=== PATIENT | male | born 1975 | race African-American/Black ===

== ENCOUNTER 2016-06-28 09:48 | Emergency (ER) | payer SELFPAY ==
[2016-06-28] MEDS ORDERED: LORazepam 2MG/ML-1ML VIAL ONE (11:14)
[2016-06-28] MEDS ORDERED: SODIUM CHLORIDE 0.9% 1,000 ML IV ONE (11:33)
[2016-06-28] MEDS ORDERED: LORazepam 2MG/ML-1ML VIAL IV ONE (11:45)
[2016-06-28 11:48] LABS: Basophils # (auto) 0 uL; Basophils % (auto) 0.6 % (0.0-2.0); Eosinophils # (auto) 0 uL; Eosinophils % (auto) 1.4 % (0.0-7.0); Hematocrit 40.6 % (41.0-53.0); Lymphocytes # (auto) 0.9 uL; Lymphocytes % (auto) 37.3 % (10.0-50.0); Mean Corpuscular Hemoglobin 30.7 pg (28.0-32.0); Mean Corpuscular Hgb Conc. 32.1 g/dL (32.0-36.0); Mean Corpuscular Volume 95.7 fL (80.0-100.0); Mean Platelet Volume 7.9 fL (7.4-10.4); Monocytes # (auto) 0.2 uL; Monocytes % (auto) 7.9 % (0.0-12.0); Neutrophils # (auto) 1.3 uL; Neutrophils % (auto) 52.8 % (37.0-80.0); Platelet Count (auto) 207 10^3/uL (140-450); Red Cell Distribution Width 15.1 % (11.6-16.0); White Blood Cell 2.5 10^3/uL (4.4-10.8)
[2016-06-28 12:01] LABS: Albumin 4.1 g/dL (3.4-5.0); BUN/Creatinine Ratio 6.7; Bilirubin, Total 0.2 mg/dL (0.2-1.0); Calcium 8.6 mg/dL (8.5-10.1); Total Protein 8.2 g/dL (6.4-8.2)
[2016-06-28] MEDS ORDERED: HALOPERIDOL LACTATE 5 MG/ML INJ VIAL ONE (13:16)
[2016-06-28] MEDS ORDERED: HALOPERIDOL LACTATE 5 MG/ML INJ VIAL IM ONE (13:30)
[2016-06-28] MEDS ORDERED: THIAMINE INJ 100 MG, MULTIPLE VITAMIN 10 ML, FOLIC ACID 1 MG, MAGNESIUM SULF SDV 50% 8 ... IV ONE ×5 (13:30)
[2016-06-28 18:25] VITALS: BP 120/74
== END 2016-06-28 18:25 | disposition home or self-care (01) ==
LOC: EDUNIT# 09:48 → ER 09:48
DX: F10.129 Alcohol abuse with intoxication, unspecified (principal); Y90.8 Blood alcohol level of 240 mg/100 ml or more; F17.210 Nicotine dependence, cigarettes, uncomplicated; F15.10 Other stimulant abuse, uncomplicated
CPT/HCPCS: 36415; 70450; 71010; 80053; 80320; 85025; 96361; 96365; 96366; 96372; 96375; 99285; J1630; J2060; J3411; J3475; J7030

== ENCOUNTER 2023-08-23 22:00 | Emergency (ER) | payer MEDICAID ==
[~2023-08-23] VITALS: Ht 177.8 cm; Wt 72.7 kg
[2023-08-23 22:30] VITALS: BP 122/70; PULSE 77; RESP 20; O2SAT 95
[2023-08-24 00:09] LABS: Basophils # (auto) 0 10 ^3/uL (0-0.2); Basophils % (auto) 0.2 % (0.0-2.0); Eosinophils # (auto) 0.1 10 ^3/uL (0-0.8); Eosinophils % (auto) 1.4 % (0.0-7.0); Hematocrit 41.4 % (41.0-53.0); Hemoglobin 13.5 g/dL (13.5-17.5); Lymphocytes # (auto) 2.2 10 ^3/uL (0.4-5.4); Lymphocytes % (auto) 33.9 % (10.0-50.0); Mean Corpuscular Hgb Conc. 32.6 g/dL (32.0-36.0); Monocytes # (auto) 0.4 10 ^3/uL (0-1.3); Monocytes % (auto) 5.8 % (0.0-12.0); Neutrophils # (auto) 3.8 10 ^3/uL (1.6-8.6); Neutrophils % (auto) 58.7 % (37.0-80.0); Nucleated Red Blood Cells % 0.2 %; Red Blood Cells 4.35 10^6/uL (4.5-5.90); Red Cell Distribution Width 15.1 % (11.8-14.3); White Blood Cell 6.5 10^3/uL (4.4-10.8)
[2023-08-24 00:26] LABS: Alanine Aminotransferase 26 U/L (7-40); Albumin 4.4 g/dL (3.2-4.8); Alkaline Phosphatase 88 U/L (46-116); Anion Gap 3 (5-15); Aspartate Aminotransferase 33 U/L (13-40); BUN/Creatinine Ratio 11.4 (10.0-20.0); Blood Urea Nitrogen 12 mg/dL (9-23); Calcium 9.1 mg/dL (8.5-10.1); Carbon Dioxide 29 mmol/L (20-30); Chloride 111 mmol/L (98-107); Glucose 90 mg/dL (74-106); Potassium 4.1 mmol/L (3.5-5.1); Sodium 143 mmol/L (136-145)
[2023-08-24 00:27] LABS: Bilirubin, Total 0.4 mg/dL (0.2-1.0)
[2023-08-24 00:34] LABS: Blood Alcohol 318.4 mg/dL (<10)
== END 2023-08-24 04:13 | disposition home or self-care (01) ==
LOC: ER 22:00
DX: F10.129 Alcohol abuse with intoxication, unspecified (principal); F17.210 Nicotine dependence, cigarettes, uncomplicated; F12.10 Cannabis abuse, uncomplicated; M79.671 Pain in right foot; M25.552 Pain in left hip; M25.551 Pain in right hip; R07.81 Pleurodynia; R51.9 Headache, unspecified; Z59.00 Homelessness unspecified; Y90.8 Blood alcohol level of 240 mg/100 ml or more
CPT/HCPCS: 36415; 71045; 71111; 73502; 73630; 80053; 80320; 85025

== ENCOUNTER 2023-10-07 10:31 | Emergency (ER) | payer MEDICAID ==
[~2023-10-07] VITALS: Ht 177.8 cm; Wt 69.4 kg
[2023-10-07 11:41] VITALS: BP 133/84; PULSE 78; RESP 20; TEMP 98.1; O2SAT 98
[2023-10-07] MEDS: HYDROcodone-ACET 5/325MG TAB PO ONE (12:44)
[2023-10-07] MEDS ORDERED: TRAM-626 PO (12:53)
[2023-10-07] MEDS ORDERED: METH-1182 PO (12:53)
== END 2023-10-07 13:06 | disposition home or self-care (01) ==
LOC: ER 10:31
DX: S52.131A Displaced fracture of neck of right radius, initial encounter for closed fracture (principal); S29.011A Strain of muscle and tendon of front wall of thorax, initial encounter; S63.8X1A Sprain of other part of right wrist and hand, initial encounter; F17.210 Nicotine dependence, cigarettes, uncomplicated; F10.90 Alcohol use, unspecified, uncomplicated; F15.90 Other stimulant use, unspecified, uncomplicated; Z59.00 Homelessness unspecified; Z79.899 Other long term (current) drug therapy; V00.148A Other scooter (nonmotorized) accident, initial encounter; Y93.I9 Activity, other involving external motion; Y92.89 Other specified places as the place of occurrence of the external cause; Y99.8 Other external cause status; Y90.0 Blood alcohol level of less than 20 mg/100 ml
CPT/HCPCS: 29105; 71101; 73090; 73130

== ENCOUNTER 2024-11-06 13:57 | Emergency (ER) | payer MEDICAID ==
[~2024-11-06] VITALS: Ht 175.3 cm; Wt 72.7 kg
[~2024-11-06 13:57] MED LIST: METH-1182 PO; TRAM-626 PO
--- NOTE | 2024-11-06 14:07 | ED.PDOC ---
History of Present Illness HPI Comments 39 year old male with a Social Hx of Alcohol Abuse was BIBA for the c/c of an ETOH. Per EMS pt was evicted out of his [employer] room earlier today, pt then proceeded to sit in-front of the establishment and drink until Emergency services arrived. No other associated symptoms, modifiers, recent injuries or sick contacts present at this time. Time Seen by MD: 14:04 Primary Care Provider: NONE Reviewed Notes: Nurses Notes, Dry Wall Plasterer Notes, Medications, Allergies Allergies: Coded Allergies: NO KNOWN ALLERGIES (Unverified , 06/28/16) Home Meds Active Scripts Tramadol HCl (Tramadol HCl) 50 Mg Tab, 50 MG PO BID, #20 TAB Prov:ASAF SEXTON 10/07/23 Methocarbamol (Methocarbamol) 750 Mg Tab, 750 MG PO BID, #20 TAB Prov:ASAF SEXTON 10/07/23 Information Source: Patient Mode of Arrival: EMS Severity: Moderate Timing: Hours Duration: Since onset, Hours Prehospital treatment: None Past Medical History PAST MEDICAL HISTORY: Denies Surgical History: Denies all surgeries Family History Family History: Reviewed,noncontributory to illness Social History Smoker: Cigarettes Alcohol: Heavy Drugs: Marijuana Lives In: Homeless Constitutional: denies: chills, diaphoresis, fatigue, fever, malaise, sweats, weakness, others EENTM: denies: blurred vision, double vision, ear bleeding, ear discharge, ear drainage, ear pain, ear ringing, eye pain, eye redness, hearing loss, mouth pain, mouth swelling, nasal discharge, nose bleeding, nose congestion, nose pain, photophobia, tearing, throat pain, throat swelling, voice changes, others Respiratory: denies: cough, hemoptysis, orthopnea, SOB at rest, shortness of breath, SOB with excertion, stridor, wheezing, others Cardiovascular: denies: chest pain, dizzy spells, diaphoresis, Dyspnea on exertion, edema, irregular heart beat, left arm pain, lightheadedness, pa lpitations, PND, syncope, others Gastrointestinal: denies: abdomen distended, abdominal pain, blood streaked bowels, constipated, diarrhea, dysphagia, difficulty swallowing, hematemesis, melena, nausea, poor appetite, poor fluid intake, rectal bleeding, rectal pain, vomiting, others Genitourinary: denies: burning, dysuria, flank pain, frequency, hematuria, incontinence, penile discharge, penile sore, pain, testicle pain, testicle swelling, urgency, others Neurological: denies: dizziness, fainting, headache, left sided numbness, left sided weakness, numbness, paresthesia, pre-existing deficit, right sided numbness, right sided weakness, seizure, speech problems, tingling, tremors, weakness, others Musculoskeletal: denies: back pain, gout, joint pain, joint swelling, muscle pain, muscle stiffness, neck pain, others Integumetry: denies: bruises, change in color, change in hair/nails, dryness, laceration, lesions, lumps, rash, wounds, others Allergic/Immunocompromised: denies: Difficulty Healing, Frequent Infections, Hives, Itching, others Hematologic/Lymphatic: denies: anemia, blood clots, easy bleeding, easy br uising, swollen glands, others Endocrine: denies: excessive hunger, excessive sweating, excessive thirst, excessive urination, flushing, intolerance to cold, intolerance to heat, unexplained weight gain, unexplained weight loss, others Psychiatric: denies: anxiety, bipolar disorder, depression, hopeless, panic disorder, schizophrenia, sleepless, suicidal, others All Other Systems: Reviewed and Negative Physical Exam General Appearance: No Apparent Distress, Normal HEENT: Normal ENT Inspection, Pharynx Normal, TMs Normal Neck: Full Range of Motion, Non-Tender, Normal Respiratory: Chest Non-Tender, Lungs Clear, No Respiratory Distress, Normal Breath Sounds Cardiovascular: No JVD, No Murmur, Normal Peripheral Pulses, Regular Rate/Rhythm Breast Exam: Deferred Gastrointestinal: Non Tender, No Pulsatile Mass, Soft Genitalia: Deferred Pelvic: Deferred Rectal: Deferred Extremities: No calf tenderness, Normal range of motion, Non-tender, No pedal edema Musculoskeletal : Apperance: Normal Neurologic: Alert, No Motor Deficits, Normal Mood Cerebellar Function: Normal Reflexes: Normal Skin: Dry, Normal Color, Warm Lymphatic: No Adenopathy Was a procedure done? Was a procedure done?: No Differential Dx Considerations may include: Alcohol intoxication X-Ray, Labs, Meds, VS Vital Signs Date Time Temp Pulse Resp B/P (MAP) Pulse Ox O2 Delivery O2 Flow Rate FiO2 11/07/24 09:05 101 20 96/52 (67) 11/07/24 08:00 83 18 96 Room Air* 0 21 11/07/24 08:00 81 11/07/24 05:09 75 16 129/64 (85) 95 11/07/24 04:00 65 11/07/24 03:50 60 22 95 11/07/24 01:00 72 16 95 11/06/24 23:00 14 95 11/06/24 21:00 98.4 71 12 91/55 (67) 100 98.4 11/06/24 19:38 69 15 100 Room Air* 0 21 11/06/24 19:36 98.4 69 13 113/63 (80) 100 98.4 11/06/24 19:02 80 13 113/69 (84) 99 11/06/24 19:00 84 17 87/52 (64) 97 11/06/24 18:30 77 15 93/52 (66) 100 11/06/24 18:00 85 19 85/40 (55) 98 11/06/24 17:00 98.5 80 14 97/55 (69) 94 98.5 11/06/24 16:00 66 14 103/55 (71) 96 11/06/24 14:30 97 15 95 Room Air* 0 21 11/06/24 14:30 87 17 103/52 (69) 94 11/06/24 14:07 98.0 96 16 116/92 (100) 98 98.0 Current Medications Medications (Trade) Dose Ordered Sig/Beltran Route Start Time Stop Time Status Last Admin Haloperidol Lactate (Haldol) 10 mg ONCE ONCE IM 11/06/24 14:15 11/06/24 14:16 DC 11/06/24 14:16 Sodium Chloride 1,000 ml @ 1,000 mls/hr Q1H ONCE IV 11/06/24 15:15 11/06/24 16:14 DC 11/06/24 15:23 Midazolam HCl (Versed Injection) 10 mg ONCE ONCE IM 11/06/24 17:45 11/06/24 17:46 DC 11/06/24 17:42 Sodium Chloride 1,000 ml @ 1,000 mls/hr Q1H ONCE IV 11/06/24 19:00 11/06/24 19:59 DC 11/06/24 18:50 Time of 1ST Reevaluation: 14:34 Reevaluation 1ST: Unchanged Patient Education/Counseling: Diagnosis, Treatment Family Education/Counseling: No Family Present SEPSIS Sepsis Screen Orders/Vitals/Labs Physician Orders Head Without Contrast (11/06/24 22:13) Methods Analyst Data Processing (11/07/24 ) Vital Signs Date Time Temp Pulse Resp B/P (MAP) Pulse Ox O2 Delivery O2 Flow Rate FiO2 11/07/24 09:05 101 20 96/52 (67) 11/07/24 08:00 83 18 96 Room Air* 0 21 11/07/24 08:00 81 11/07/24 05:09 75 16 129/64 (85) 95 11/07/24 04:00 65 11/07/24 03:50 60 22 95 11/07/24 01:00 72 16 95 11/06/24 23:00 14 95 11/06/24 21:00 98.4 71 12 91/55 (67) 100 98.4 11/06/24 19:38 69 15 100 Room Air* 0 21 11/06/24 19:36 98.4 69 13 113/63 (80) 100 98.4 11/06/24 19:02 80 13 113/69 (84) 99 11/06/24 19:00 84 17 87/52 (64) 97 11/06/24 18:30 77 15 93/52 (66) 100 11/06/24 18:00 85 19 85/40 (55) 98 11/06/24 17:00 98.5 80 14 97/55 (69) 94 98.5 11/06/24 16:00 66 14 103/55 (71) 96 11/06/24 14:30 97 15 95 Room Air* 0 21 11/06/24 14:30 87 17 103/52 (69) 94 11/06/24 14:07 98.0 96 16 116/92 (100) 98 98.0 Departure 1 Departure Time of Disposition: 10:08 (Patient is now clinically sober. He is now tolerating p.o. ambulating without assistance and A&O times so for.) Impression: Primary Impression: Alcohol intoxication Qualified Codes: F10.921 - Alcohol use, unspecified with intoxication delirium Disposition: HOME / SELF CARE / HOMELESS Condition: Stable Additional Instructions: You were intoxicated. It is important to only drink in moderation. If you need help quitting you can call (HELP). If your symptoms worsen or you have any other concerns then please return to the ER. Discharged With: Self Critical Care Note Critical Care Time?: No Stability Stability form required: No Heart Score Heart Score: Heart Score Response (Comments) Value History N/A 0 EKG N/A 0 Age N/A 0 Risk Factors N/A 0 Troponin N/A 0 Total 0 I personally scribed for BRITTANY DALLAS MD ([email or web address]) on 11/06/24 at 14:07. Electronically submitted by Job Flores ([email or web address]). BRITTANY DALLAS MD Nov 06, 2024 14:07
[2024-11-06] MEDS: HALOPERIDOL LACTATE 5 MG/ML INJ VIAL IM ONE ×2 (14:16→17:50)
[2024-11-06 14:30] VITALS: PULSE 97; RESP 15; O2SAT 95
[2024-11-06] MEDS: SODIUM CHLORIDE 0.9% 1,000 ML IV ONE ×2 (15:23→18:50)
[2024-11-06] MEDS: MIDAZOLAM HCL 5 MG/ML-1ML VIAL ONE (17:40)
[2024-11-06] MEDS: MIDAZOLAM HCL 5 MG/ML-1ML VIAL IM ONE (17:42)
[2024-11-06 19:38] VITALS: PULSE 69; RESP 15; O2SAT 100
[2024-11-06 21:00] VITALS: TEMP 98.4
--- NOTE | 2024-11-06 23:02 | DVH ---
EXAM: CT HEAD WITHOUT CONTRAST INDICATION: head injury TECHNIQUE: CT of the head without intravenous contrast. Radiation Dose : 1. Head: CT Dose: CTDI volume is 60.26 mGy. Dose-length product is 1187.47 mGy*cm The dose indicators for CT are the volume Computed Tomography (CT) Dose Index (CTDIvol) and the Dose Length Product (DLP), and are measured in units of mGy and mGy-cm, respectively. These indicators are not patient dose, but values generated from the CT scanner acquisition factors. The report includes radiation exposure data for exposures received during this examination. COMPARISON: None FINDINGS: There is no evidence of acute intracranial hemorrhage, extra-axial collection, mass effect, midline s hift, herniation or hydrocephalus. 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 The dunham-white differentiation is intact. Patchy periventricular and subcortical white matter hypoattenuation is nonspecific but may be related to small vessel ischemic disease. Minimal left maxillary mucosal sinus disease. The remaining visualized paranasal sinuses and mastoid air cells are clear. The surrounding soft tissues and osseous structures are unremarkable. IMPRESSION: 1. No acute intracranial abnormality. Radiation optimization: All CT scans at this facility use at least one of these dose optimization julianna hniques: automated exposure control mA and/or kV adjustment per patient size (includes targeted exam s where dose is matched to clinical indication) or iterative reconstruction.
[2024-11-07 08:00] VITALS: PULSE 83; RESP 18; O2SAT 96
[2024-11-07 10:15] VITALS: BP 137/69; PULSE 90; RESP 21; O2SAT 98
== END 2024-11-07 10:38 | disposition home or self-care (01) ==
LOC: ER 13:57 → EDBD 13:57 → ER 11-07 10:21
DX: F10.129 Alcohol abuse with intoxication, unspecified (principal); F17.210 Nicotine dependence, cigarettes, uncomplicated; F12.90 Cannabis use, unspecified, uncomplicated; Z59.00 Homelessness unspecified; Z79.899 Other long term (current) drug therapy; Y90.9 Presence of alcohol in blood, level not specified
CPT/HCPCS: 70450; 96360; 96361; 96372; 99285; J1630; J2250; J7030